=== PATIENT | male | born 1955 | race Caucasian/White ===

== ENCOUNTER 2018-03-20 23:45 | Emergency (ER) | payer SELFPAY ==
[~2018-03-20] VITALS: Ht 170.2 cm; Wt 88.6 kg
[2018-03-20 23:48] VITALS: BP 138/78; PULSE 94; RESP 20; Ht 170.2 cm; Wt 88.6 kg
[2018-03-21] MEDS ORDERED: ACETAMINOPHEN 500 MG TAB PO STA (02:32)
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
[2018-03-21] MEDS ORDERED: ACET500C5 PO (03:31)
== END 2018-03-21 04:27 | disposition home or self-care (01) ==
LOC: FTE 23:45
DX: R51 Headache (principal); R40.2412 Glasgow coma scale score 13-15, at arrival to emergency department
CPT/HCPCS: 70450